=== PATIENT | male | born 1945 | race Caucasian/White ===

== ENCOUNTER → 2016-10-11 | Day surgery (SDC) | payer MEDICARE, OTHER ==
[~2016-10-11] VITALS: Ht 167.6 cm; Wt 113.4 kg
[~2016-10-11] MED LIST: ACETAMINOPH W/CODEINE #3 TAB UD PO PRN; ALLO100T PO; ASPI1TAB PO; CALC1CAP31 PO; CLOT1CRE71 TOP; COLA100C PO; DESFLURANE 240 ML INHALANT As Ordered ONE; DILT240C77 PO; ELIQ5TAB PO; FERR325T3 PO; FURO40TA2 PO; GLYCOPYRROLATE INJ 0.2 MG/ML 2 ML VIAL As Ordered ONE; I CAPS PO; LEVO10VL PO; LIDOCAINE 2% INJ 100 MG/5 ML SDV (FOR ANES.) As Ordered ONE; LIDOCAINE W/EPINEPHRINE 1% 20ML VIAL As Ordered ONE; LIDOCAINE W/EPINEPHRINE 1% 20ML VIAL XX ONE; LOVE0.6I2 SC; LR 1,000 ML IV SCH; MAGN400C PO; MEPERIDINE INJ 25 MG/ML VIAL (J2175) IV PRN; META48.54 PO; METO25TA74 PO; METOCLOPRAMIDE INJ 10MG/2ML VIAL (J2765) IV PRN; MIDAZOLAM INJ 2 MG/2 ML VIAL (J2250) As Ordered ONE; MORPHINE 10 MG/ML 1ML VIAL IV PRN; NEOSTIGMINE 1MG/ML 5 ML SYRINGE (J2710) As Ordered ONE; NEXI40CA PO; NOVO70IN SC; ONDANSETRON 4MG/2ML VIAL (J2405) As Ordered ONE; ONDANSETRON 4MG/2ML VIAL (J2405) IV PRN; PERCOCET 5MG/325MG TAB As Ordered ONE; PHENYLephrine HCL 500 MCG/5 ML (100MCG/ML) SYRINGE (J2370) As Ordered ONE; POTA20PW PO; PRIM250T5 PO; PROPOFOL 200 MG/20 ML VIAL As Ordered ONE; ROCURONIUM BROMIDE 50 MG/5 ML VIAL As Ordered ONE; SIMV20TA2 PO; [UNRECOGNIZED DRUG - CODE] TOP; fentaNYL 100 MCG/2 ML INJECTION (J3010) As Ordered ONE; fentaNYL 100 MCG/2 ML INJECTION (J3010) IV PRN
[2016-10-11] MEDS: PERCOCET 5MG/325MG TAB PO PRN ×2 (12:42→13:02)
--- NOTE | 2016-10-11 12:52 | RO ---
DATE OF PROCEDURE: 10/11/2016 PREOPERATIVE DIAGNOSIS: Skin cancer, nose. POSTOPERATIVE DIAGNOSIS: Skin cancer, nose. PROCEDURE: Excision of skin cancer, nose with nasolabial flap reconstruction stage I. SURGEON: Jeffrey Toure MD STRIPER SPRAY GUN: TARAH Enrique ANESTHESIA: The patient was under general anesthesia. FINDINGS: There was a cancer of the floor of the nose in the vestibule extending back posteriorly onto the septum medially and onto the alar area of the vestibule laterally. DESCRIPTION OF PROCEDURE: What I did first was infiltrate with lidocaine with epinephrine. I mapped out the excision and divided skin and subcutaneous tissues. I excised anteriorly up to the septum and then posteriorly. I went up to the ala and then posteriorly and then down to the floor of the nose. I then dissected the deep tissues and resected the whole area entirely. I took samples of the margins and were sent for frozen section and were all negative. Once this was done, I then controlled bleeding with cautery. The size of the defect measured 3 x 4 cm. Because of this, I had to stage the flap because of the size of the defect. So I made a nasolabial flap based inferiorly. I elevated. Controlled bleeding with cautery. Rotated into place. I sutured it anterior posterior, anterior medially, anterior inferiorly using #4-0 Vicryl and #5-0 nylon. Once this was done, the flap looked very good. I then closed the donor site with #4-0 Vicryl and #5-0 nylon. The ala was tacked down using #5-0 nylon and #4-0 Vicryl. There was no bleeding at the end. I put some Adaptic gauze in the vestibule on that right side. The wound was dressed. Less than 100 mL of estimated blood loss. Patient was extubated and transferred to the recovery room in excellent condition.
[2016-10-11 15:22] VITALS: BP 148/72
== END | disposition home or self-care (01) ==
LOC: M SDC 08:12
PROVIDERS: ATTEND Otolaryngology
DX: C44.301 Unspecified malignant neoplasm of skin of nose (principal); E03.9 Hypothyroidism, unspecified; I12.0 Hypertensive chronic kidney disease with stage 5 chronic kidney disease or end stage renal disease; E10.22 Type 1 diabetes mellitus with diabetic chronic kidney disease; I48.91 Unspecified atrial fibrillation; E78.00 Pure hypercholesterolemia, unspecified; M10.9 Gout, unspecified; J44.9 Chronic obstructive pulmonary disease, unspecified; I50.9 Heart failure, unspecified; J33.9 Nasal polyp, unspecified; R60.0 Localized edema; D64.9 Anemia, unspecified; Z79.01 Long term (current) use of anticoagulants; Z79.4 Long term (current) use of insulin; R06.02 Shortness of breath; Z86.19 Personal history of other infectious and parasitic diseases; G47.9 Sleep disorder, unspecified; Z79.899 Other long term (current) drug therapy; Z79.82 Long term (current) use of aspirin; Z92.3 Personal history of irradiation; M12.9 Arthropathy, unspecified; Z87.81 Personal history of (healed) traumatic fracture; N18.6 End stage renal disease
CPT/HCPCS: 14060; 88305; 88331; J2250; J2370; J2405; J2710; J3010

== ENCOUNTER → 2016-10-31 | Day surgery (SDC) | payer MEDICARE, OTHER ==
[~2016-10-31] VITALS: Ht 167.6 cm; Wt 109.8 kg
[~2016-10-31] MED LIST changes: +BACITRACIN OINT 30GM As Ordered ONE; +BACITRACIN OINT 30GM TOP ONE; -DESFLURANE 240 ML INHALANT As Ordered ONE; +EPINEPHrine 1MG/ML INJ 30ML MD-VIAL As Ordered ONE; +EPINEPHrine 1MG/ML INJ 30ML MD-VIAL XX ONE; -GLYCOPYRROLATE INJ 0.2 MG/ML 2 ML VIAL As Ordered ONE; -MEPERIDINE INJ 25 MG/ML VIAL (J2175) IV PRN; +METOCLOPRAMIDE INJ 10MG/2ML VIAL (J2765) As Ordered ONE; -METOCLOPRAMIDE INJ 10MG/2ML VIAL (J2765) IV PRN; -MORPHINE 10 MG/ML 1ML VIAL IV PRN; +MORPHINE 2 MG/ML 1ML SYRINGE IV PRN; -NEOSTIGMINE 1MG/ML 5 ML SYRINGE (J2710) As Ordered ONE; -PERCOCET 5MG/325MG TAB As Ordered ONE; -PHENYLephrine HCL 500 MCG/5 ML (100MCG/ML) SYRINGE (J2370) As Ordered ONE; +SUGAMMADEX SODIUM 500 MG/5 ML VIAL (BRIDION) As Ordered ONE; +dexameTHASONE 4 MG/ML 1ML VIAL (J1100) As Ordered ONE; -fentaNYL 100 MCG/2 ML INJECTION (J3010) As Ordered ONE; +fentaNYL 250 MCG/5 ML INJECTION (J3010) As Ordered ONE
[2016-10-31 17:05] VITALS: BP 131/68
--- NOTE | 2016-10-31 18:31 | RO ---
DATE OF PROCEDURE: 10/31/2016 PREPROCEDURE DIAGNOSIS: Basal cell carcinoma of nose. POSTPROCEDURE DIAGNOSIS: Basal cell carcinoma of nose. PROCEDURE: Second stage flap reconstruction nose. SURGEON: Dr. Jeffrey Toure VEHICLE PAINTER: ANESTHESIA: DESCRIPTION OF PROCEDURE: Under general anesthesia with the patient intubated, the patient was draped in the usual manner. The first thing I did was to de-epithelialize the inferior aspect of the ala on that right side. Then, I measured the defect, which measured 5 x 10 mm. So, I designed a flap from the nasolabial flap based laterally and then made the incisions, elevated that, controlled bleeding with bipolar cautery and then mobilized that flap into position to re-epithelialize the ala. Then, there was some granulation tissue medially, and I sent that for pathology. I controlled that area of bleeding with bipolar cautery. Then, I made radial incisions laterally and then mobilized the nasolabial flap and advanced it into the alar groove and sutured it with #4-0 Vicryl and then #5-0 nylon. I revised the prior incision a bit inferiorly. After that, it looked very good. The patient tolerated the procedure well. Less than 50 mL estimated blood loss. The patient tolerated the procedure well, was extubated and transferred to the recovery room in excellent condition. EMMA
== END | disposition home or self-care (01) ==
LOC: M SDC 10:41
PROVIDERS: ATTEND Otolaryngology
DX: C44.311 Basal cell carcinoma of skin of nose (principal); I48.91 Unspecified atrial fibrillation; I10 Essential (primary) hypertension; E78.5 Hyperlipidemia, unspecified; E11.9 Type 2 diabetes mellitus without complications; K21.9 Gastro-esophageal reflux disease without esophagitis; Z79.4 Long term (current) use of insulin; Z79.02 Long term (current) use of antithrombotics/antiplatelets; Z79.82 Long term (current) use of aspirin; E03.9 Hypothyroidism, unspecified
CPT/HCPCS: 30430; 88305; J1100; J2250; J2405; J2765; J3010

== ENCOUNTER → 2016-11-28 | Day surgery (SDC) | payer MEDICARE, OTHER ==
[~2016-11-28] VITALS: Ht 167.6 cm; Wt 108.0 kg
[~2016-11-28] MED LIST changes: -ACETAMINOPH W/CODEINE #3 TAB UD PO PRN; +ACETAMINOPHEN 500 MG TAB PO PRN; -BACITRACIN OINT 30GM TOP ONE; -EPINEPHrine 1MG/ML INJ 30ML MD-VIAL XX ONE; +GLYCOPYRROLATE INJ 0.2 MG/ML 2 ML VIAL As Ordered ONE; -LIDOCAINE W/EPINEPHRINE 1% 20ML VIAL XX ONE; +METHYLENE BLUE 0.5% (5MG/ML) 10 ML AMP (PROVAYBLUE)(Q9968 PER 1MG) As Ordered ONE; -METOCLOPRAMIDE INJ 10MG/2ML VIAL (J2765) As Ordered ONE; -MORPHINE 2 MG/ML 1ML SYRINGE IV PRN; +NEOSTIGMINE 1MG/ML 5 ML SYRINGE (J2710) As Ordered ONE; +NORCO, ANEXSIA 5/325MG TABLET (HYDROcodone/ACETAMINOPHEN) PO PRN; -SUGAMMADEX SODIUM 500 MG/5 ML VIAL (BRIDION) As Ordered ONE; -dexameTHASONE 4 MG/ML 1ML VIAL (J1100) As Ordered ONE
[2016-11-28 13:05] VITALS: BP 141/70
--- NOTE | 2016-11-29 10:06 | RO ---
DATE OF PROCEDURE: 11/28/2016 PREPROCEDURE DIAGNOSIS: Squamous cell carcinoma of nose. POSTPROCEDURE DIAGNOSIS: Squamous cell carcinoma of nose. PROCEDURE: Excision squamous cell carcinoma of nose. SURGEON: Jeffrey Toure MD CAMPUS ADMINISTRATIVE ASSISTANT: TARAH Enrique ANESTHESIA: FINDINGS: I excised an area that was 1 x 2 cm. Then, I did frozen sections of border, so the defect was 2 x 1 cm. So, the initial defect was 1.2 x 1 cm. The defect after frozen section was 2.0 x 1.0. The results of the frozen section were that it was positive in the deep margin and the lateral border. DESCRIPTION OF PROCEDURE: Under general anesthesia with the patient intubated, draped in the usual manner, I made an incision around the lesion. I dissected free with the scalpel. Then, I took frozen section biopsies of the margins. Bleeding was controlled with bipolar cautery. Because of the size of the defect and the positive margin, it was elected to not proceed further because the patient will require a nasofrontal forward flap.
== END | disposition home or self-care (01) ==
LOC: M SDC 06:43
PROVIDERS: ATTEND Otolaryngology
DX: C44.311 Basal cell carcinoma of skin of nose (principal); I10 Essential (primary) hypertension; E11.9 Type 2 diabetes mellitus without complications; I48.91 Unspecified atrial fibrillation; E78.5 Hyperlipidemia, unspecified; E03.9 Hypothyroidism, unspecified; K21.9 Gastro-esophageal reflux disease without esophagitis; Z92.3 Personal history of irradiation; Z79.82 Long term (current) use of aspirin; Z79.899 Other long term (current) drug therapy; Z79.02 Long term (current) use of antithrombotics/antiplatelets
CPT/HCPCS: 11642; 88305; 88331; J2250; J2405; J2710; J3010

== ENCOUNTER 2016-12-07 09:00 | Day surgery (SDC) | payer MEDICARE, OTHER ==
[~2016-12-07] VITALS: Ht 167.6 cm; Wt 108.0 kg
[~2016-12-07 09:00] MED LIST changes: -ACETAMINOPHEN 500 MG TAB PO PRN; -BACITRACIN OINT 30GM As Ordered ONE; -EPINEPHrine 1MG/ML INJ 30ML MD-VIAL As Ordered ONE; -GLYCOPYRROLATE INJ 0.2 MG/ML 2 ML VIAL As Ordered ONE; -LIDOCAINE 2% INJ 100 MG/5 ML SDV (FOR ANES.) As Ordered ONE; -LIDOCAINE W/EPINEPHRINE 1% 20ML VIAL As Ordered ONE; -LR 1,000 ML IV SCH; -METHYLENE BLUE 0.5% (5MG/ML) 10 ML AMP (PROVAYBLUE)(Q9968 PER 1MG) As Ordered ONE; -MIDAZOLAM INJ 2 MG/2 ML VIAL (J2250) As Ordered ONE; -NEOSTIGMINE 1MG/ML 5 ML SYRINGE (J2710) As Ordered ONE; -NORCO, ANEXSIA 5/325MG TABLET (HYDROcodone/ACETAMINOPHEN) PO PRN; -ONDANSETRON 4MG/2ML VIAL (J2405) As Ordered ONE; -ONDANSETRON 4MG/2ML VIAL (J2405) IV PRN; -PROPOFOL 200 MG/20 ML VIAL As Ordered ONE; -ROCURONIUM BROMIDE 50 MG/5 ML VIAL As Ordered ONE; -fentaNYL 100 MCG/2 ML INJECTION (J3010) IV PRN; -fentaNYL 250 MCG/5 ML INJECTION (J3010) As Ordered ONE
[2016-12-07] MEDS ORDERED: LR 1,000 ML IV SCH ×2 (09:15→16:15)
[2016-12-07] MEDS ORDERED: BACITRACIN OINT 30GM As Ordered ONE (11:15)
[2016-12-07] MEDS ORDERED: LIDOCAINE W/EPINEPHRINE 1% 20ML VIAL As Ordered ONE (11:16)
[2016-12-07] MEDS ORDERED: MIDAZOLAM INJ 2 MG/2 ML VIAL (J2250) As Ordered ONE (12:05)
[2016-12-07] MEDS ORDERED: ePHEDrine SULFATE 25 MG/5 ML(5MG/ML) SYRINGE As Ordered ONE ×2 (12:05→13:11)
[2016-12-07] MEDS ORDERED: fentaNYL 250 MCG/5 ML INJECTION (J3010) As Ordered ONE (12:05)
[2016-12-07] MEDS ORDERED: PHENYLephrine HCL 500 MCG/5 ML (100MCG/ML) SYRINGE (J2370) As Ordered ONE (12:06)
[2016-12-07] MEDS ORDERED: ROCURONIUM BROMIDE 50 MG/5 ML VIAL As Ordered ONE (12:06)
[2016-12-07] MEDS ORDERED: LIDOCAINE 2% INJ 100 MG/5 ML SDV (FOR ANES.) As Ordered ONE (12:06)
[2016-12-07] MEDS ORDERED: PROPOFOL 200 MG/20 ML VIAL As Ordered ONE (12:06)
[2016-12-07] MEDS ORDERED: GLYCOPYRROLATE INJ 0.2 MG/ML 2 ML VIAL As Ordered ONE (12:06)
[2016-12-07] MEDS ORDERED: NEOSTIGMINE 1MG/ML 5 ML SYRINGE (J2710) As Ordered ONE (12:06)
[2016-12-07] MEDS ORDERED: ONDANSETRON 4MG/2ML VIAL (J2405) As Ordered ONE (12:06)
[2016-12-07] MEDS ORDERED: DESFLURANE 240 ML INHALANT As Ordered ONE (12:22)
[2016-12-07] MEDS ORDERED: fentaNYL 100 MCG/2 ML INJECTION (J3010) As Ordered ONE (15:05)
[2016-12-07] MEDS: fentaNYL 100 MCG/2 ML INJECTION (J3010) IV PRN ×5 (15:06→17:09)
[2016-12-07] MEDS ORDERED: PERCOCET 5MG/325MG TAB PO PRN (16:15)
[2016-12-07] MEDS ORDERED: METOCLOPRAMIDE INJ 10MG/2ML VIAL (J2765) IV PRN (16:15)
[2016-12-07] MEDS ORDERED: ONDANSETRON 4MG/2ML VIAL (J2405) IV PRN (16:15)
[2016-12-07] MEDS ORDERED: ACETAMINOPH W/CODEINE #3 TAB UD PO PRN (16:15)
[2016-12-07 17:00] VITALS: BP 129/71
[2016-12-07] MEDS: LR 1,000 ML IV SCH (17:23)
[2016-12-07] MEDS: MORPHINE 10 MG/ML 1ML VIAL IV PRN ×2 (17:25→21:41)
[2016-12-07 17:30] VITALS: BP 137/69
[2016-12-07] MEDS ORDERED: HumuLIN (NovoLIN)70/30 INSULIN INJ PER UNIT SC SCH (17:30)
[2016-12-07 18:00] VITALS: BP 136/77
--- NOTE | 2016-12-07 18:20 | RO ---
DATE OF PROCEDURE: 12/07/2016 PREOPERATIVE DIAGNOSES: Skin cancer nose. POSTOPERATIVE DIAGNOSES: Skin cancer nose. OPERATIVE PROCEDURE: Excision of skin cancer nose. The defect measured 2 x 2 cm with frozen section. Reconstruction using forehead flap and auricular cartilage graft. SURGEON: Jeffrey Toure MD PORTFOLIO ADMINISTRATOR: Rogelio Sequeira ANESTHESIA: General anesthesia. DESCRIPTION OF PROCEDURE: Under general anesthesia, with the patient intubated, the patient was draped in the usual manner. I infiltrated with lidocaine and epinephrine. I excised the base of the defect from before where it was positive and sent that for frozen section. Once this was done, then there was complete lack of the tissue in the lower lateral cartilage and mucosa as well as the skin anteriorly, so through this loss there was just a 2 mm alar rim, which was intact. Because of that, I resected this and elected to reconstruct the whole area. I used a frontal forehead flap and sandwiched a cartilage graft from the right ear between that. This was accomplished first by making an incision in the oracle in the right side and I harvested cartilage. I closed that incision with #5-0 nylon. After this was done then I designed the forehead frontal flap to cover the area. The frontal forehead flap was designed using a template from the defect. Once this was done, then I made the incisions around the flap with a 1.5 mm base. The defect that was reconstructed was 4 x 6 cm. Once the flap was raised I controlled the bleeding with cautery. I wrapped the flap in wet gauze. Once that was done, then I undermined the harvest site on both sides. Once I undermined it completely, then I put in a [place] drain and closed that wound with #4-0 Prolene as well as some #3-0 Vicryl. It closed well. Then, I thinned the forehead flap, distal portion, to 1.5 mm to 2 mm in depth. Once that was done, then I rotated the flap into place. I made incisions in the brow area so that it had good length. From the tip of the nose to the forehead area it was 8 cm and this was similarity from the flap to the tip of the flap. I then started suturing the flap in place by using interrupted #4-0 Vicryl inside the nose for the defect of the alar rim on the right side and then once that was in place, then I started suturing the skin on the left side. That left the skin on the right side. I cut some of the harvested cartilage, put it in, sutured it to the upper lateral cartilage and lateral crest of the lower lateral cartilage. Then, I closed the skin on that right side. The patient tolerated the procedure well. Less than 50 mL of estimated blood loss. I then cauterized the edges of the forehead flap pedicle skin which were bleeding with bipolar cautery. Once that was done, everything looked very good. I had thought of harvesting a mucosal flap to the inside, but abandoned that and did cauterize that area with cautery. The patient tolerated the procedure well. The patient was extubated and transferred to the recovery room in excellent condition after the wound was dressed.
[2016-12-07 19:00] VITALS: BP 123/72
[2016-12-07 20:00] VITALS: BP 129/79
[2016-12-07] MEDS: ALLOPURINOL 100 MG TAB PO SCH (20:02)
[2016-12-07] MEDS: FUROSEMIDE 40 MG TAB PO SCH (20:03)
[2016-12-07] MEDS: MAGNESIUM OXIDE 400 MG TAB (MAG-OX) PO SCH (20:03)
[2016-12-07] MEDS: FERROUS SULFATE 325MG TAB PO SCH (20:12)
[2016-12-07] MEDS: METOPROLOL SUCC *XL* 25MG TAB (TopROL *XL*) PO SCH (20:13)
[2016-12-07 21:00] VITALS: BP 116/63
[2016-12-07] MEDS ORDERED: SIMVASTATIN 40 MG TAB PO SCH (21:00)
[2016-12-07] MEDS ORDERED: PRIMIDONE 50 MG TAB PO SCH (21:00)
[2016-12-07] MEDS ORDERED: CALCITRIOL 0.25 MCG CAP (S0169) PO SCH (21:00)
[2016-12-08 02:00] VITALS: BP 132/68
[2016-12-08] MEDS: LR 1,000 ML IV SCH (02:15)
[2016-12-08] MEDS: MORPHINE 10 MG/ML 1ML VIAL IV PRN ×2 (05:59→11:50)
[2016-12-08 06:00] VITALS: BP 117/66
[2016-12-08] MEDS ORDERED: LEVOTHYROXINE 0.15 MG TAB (150 MCG) PO SCH (06:00)
[2016-12-08] MEDS ORDERED: HumuLIN (NovoLIN)70/30 INSULIN INJ PER UNIT SC SCH ×2 (07:30→17:30)
[2016-12-08] MEDS: FERROUS SULFATE 325MG TAB PO SCH (08:07)
[2016-12-08] MEDS: FUROSEMIDE 40 MG TAB PO SCH (08:08)
[2016-12-08] MEDS: MAGNESIUM OXIDE 400 MG TAB (MAG-OX) PO SCH (08:08)
[2016-12-08] MEDS: ALLOPURINOL 100 MG TAB PO SCH (08:08)
[2016-12-08 08:09] VITALS: BP 117/66
[2016-12-08] MEDS: METOPROLOL SUCC *XL* 25MG TAB (TopROL *XL*) PO SCH (08:09)
[2016-12-08] MEDS ORDERED: DOCUSATE SODIUM 100 MG CAP PO SCH (09:00)
[2016-12-08] MEDS ORDERED: OMEGA-3 1050MG CAPSULE PO SCH (09:00)
[2016-12-08] MEDS ORDERED: POTASSIUM CHLORIDE 10 MEQ SR TABLET PO SCH (09:00)
[2016-12-08] MEDS ORDERED: METAMUCIL (PSYLLIUM) PACKET PO SCH (09:00)
[2016-12-08] MEDS ORDERED: PANTOPRAZOLE 40MG TAB (PROTONIX) PO SCH (09:00)
[2016-12-08] MEDS ORDERED: VITAMIN D 1,000 INTERNATIONAL UNITS TABLET PO SCH (09:00)
[2016-12-08 10:00] VITALS: BP 144/62
== END 2016-12-08 14:40 | disposition home or self-care (01) ==
LOC: M SDC 09:00 → M MSPAV 17:00 → M SDC 12-08 14:40
PROVIDERS: ATTEND Otolaryngology
DX: C44.311 Basal cell carcinoma of skin of nose (principal); I48.91 Unspecified atrial fibrillation; I10 Essential (primary) hypertension; E78.5 Hyperlipidemia, unspecified; E11.9 Type 2 diabetes mellitus without complications; E03.9 Hypothyroidism, unspecified; Z79.4 Long term (current) use of insulin; Z79.82 Long term (current) use of aspirin; Z79.02 Long term (current) use of antithrombotics/antiplatelets; Z79.899 Other long term (current) drug therapy; Z92.3 Personal history of irradiation
CPT/HCPCS: 11642; 15260; 15731; 88305; 88331; 96374; 96376; J2250; J2370; J2405; J2710; J3010

== ENCOUNTER → 2016-12-12 | Outpatient (REF) | payer MEDICARE, OTHER | LOC: M LAB REF 16:58 | PROVIDERS: ATTEND Physician Assistant Medical | DX: C44.321 Squamous cell carcinoma of skin of nose (principal) ==

== ENCOUNTER → 2017-01-03 | Day surgery (SDC) | payer MEDICARE, OTHER ==
[~2017-01-03] VITALS: Ht 167.6 cm; Wt 107.5 kg
[~2017-01-03] MED LIST changes: +ACETAMINOPH W/CODEINE #3 TAB UD PO PRN; +ALBUTEROL 6.7GM INHALER **FOR ANES. CART/OMNICELL ONLY As Ordered ONE; +AMOX500C PO; +BACITRACIN OINT 30GM As Ordered ONE; -COLA100C PO; +COLA100C3 PO; +EPINEPHrine 1MG/ML INJ 30ML MD-VIAL As Ordered ONE; +GLYCOPYRROLATE INJ 0.2 MG/ML 2 ML VIAL As Ordered ONE; +KLOR20PO12 PO; +LEVO100T5 PO; +LIDOCAINE 2% INJ 100 MG/5 ML SDV (FOR ANES.) As Ordered ONE; +LIDOCAINE W/EPINEPHRINE 1% 20ML VIAL As Ordered ONE; +LR 1,000 ML IV SCH; +MIDAZOLAM INJ 2 MG/2 ML VIAL (J2250) As Ordered ONE; +NEOSTIGMINE 1MG/ML 5 ML SYRINGE (J2710) As Ordered ONE; +NS 1,000 ML IV SCH; +ONDANSETRON 4MG/2ML VIAL (J2405) As Ordered ONE; +ONDANSETRON 4MG/2ML VIAL (J2405) IV PRN; +PERCOCET 5MG/325MG TAB PO PRN; +PHENYLEPHRINE INJ 10MG/ML VIAL (J2370) As Ordered ONE; -POTA20PW PO; +PROPOFOL 200 MG/20 ML VIAL As Ordered ONE; +REMIFENTANIL 1MG 3ML VIAL As Ordered ONE; +ROCURONIUM BROMIDE 50 MG/5 ML VIAL As Ordered ONE; +SUCCINYLCHOLINE 100 MG/5 ML SYRINGE (J0330) As Ordered ONE; +dexameTHASONE 4 MG/ML 1ML VIAL (J1100) As Ordered ONE; +fentaNYL 100 MCG/2 ML INJECTION (J3010) IV PRN; +fentaNYL 250 MCG/5 ML INJECTION (J3010) As Ordered ONE
[2017-01-03 16:32] VITALS: BP 141/71
--- NOTE | 2017-01-03 21:27 | RO ---
DATE OF PROCEDURE: 01/03/2017 PREOPERATIVE DIAGNOSES: Skin cancer nose. POSTOPERATIVE DIAGNOSES: Skin cancer nose. OPERATIVE PROCEDURE: 6th stage reconstruction defect from skin cancer nose. SURGEON: Jeffrey Toure MD SHELL REPRINT OPERATOR: Jarocho Lee MD ANESTHESIA: General anesthesia. DESCRIPTION OF PROCEDURE: Under general anesthesia, with the patient intubated, the patient was draped in the usual manner. Flap was examined. It looked very good. I divided the superior portion of the pedicle and then revised that portion and inset it and sutured it with interrupted #5-0 nylon. Then, I cut the inferior part of the pedicle off and then trimmed the flap in its superior border so it would fit and abut the adjacent skin. I had to excise portions and then trim them. Bleeding was controlled with cautery. The area looked very good. I sutured the area and closed with interrupted #5-0 nylon. The patient tolerated the procedure well. Less than 10 mL estimated blood loss. The patient was extubated and transferred to the recovery room in excellent condition. EMMA
== END | disposition home or self-care (01) ==
LOC: M SDC 10:06
PROVIDERS: ATTEND Otolaryngology
DX: C44.321 Squamous cell carcinoma of skin of nose (principal); E03.9 Hypothyroidism, unspecified; I12.9 Hypertensive chronic kidney disease with stage 1 through stage 4 chronic kidney disease, or unspecified chronic kidney disease; E10.40 Type 1 diabetes mellitus with diabetic neuropathy, unspecified; E10.22 Type 1 diabetes mellitus with diabetic chronic kidney disease; I48.91 Unspecified atrial fibrillation; E78.00 Pure hypercholesterolemia, unspecified; R60.0 Localized edema; K21.9 Gastro-esophageal reflux disease without esophagitis; D64.9 Anemia, unspecified; R23.3 Spontaneous ecchymoses; B15.9 Hepatitis A without hepatic coma; R06.02 Shortness of breath; N18.4 Chronic kidney disease, stage 4 (severe); M12.9 Arthropathy, unspecified; M54.9 Dorsalgia, unspecified; M87.00 Idiopathic aseptic necrosis of unspecified bone; G25.0 Essential tremor; Z79.899 Other long term (current) drug therapy; Z79.82 Long term (current) use of aspirin; Z79.4 Long term (current) use of insulin; Z87.81 Personal history of (healed) traumatic fracture; Z92.3 Personal history of irradiation
CPT/HCPCS: 15630; J0330; J1100; J2250; J2370; J2405; J2710; J3010

== ENCOUNTER → 2017-02-09 | Outpatient (REF) | payer MEDICARE, OTHER ==
[~2017-02-09] MED LIST changes: -ACETAMINOPH W/CODEINE #3 TAB UD PO PRN; -ALBUTEROL 6.7GM INHALER **FOR ANES. CART/OMNICELL ONLY As Ordered ONE; -BACITRACIN OINT 30GM As Ordered ONE; -EPINEPHrine 1MG/ML INJ 30ML MD-VIAL As Ordered ONE; -GLYCOPYRROLATE INJ 0.2 MG/ML 2 ML VIAL As Ordered ONE; -LIDOCAINE 2% INJ 100 MG/5 ML SDV (FOR ANES.) As Ordered ONE; -LIDOCAINE W/EPINEPHRINE 1% 20ML VIAL As Ordered ONE; -LR 1,000 ML IV SCH; -MIDAZOLAM INJ 2 MG/2 ML VIAL (J2250) As Ordered ONE; -NEOSTIGMINE 1MG/ML 5 ML SYRINGE (J2710) As Ordered ONE; -NS 1,000 ML IV SCH; -ONDANSETRON 4MG/2ML VIAL (J2405) As Ordered ONE; -ONDANSETRON 4MG/2ML VIAL (J2405) IV PRN; -PERCOCET 5MG/325MG TAB PO PRN; -PHENYLEPHRINE INJ 10MG/ML VIAL (J2370) As Ordered ONE; -PROPOFOL 200 MG/20 ML VIAL As Ordered ONE; -REMIFENTANIL 1MG 3ML VIAL As Ordered ONE; -ROCURONIUM BROMIDE 50 MG/5 ML VIAL As Ordered ONE; -SUCCINYLCHOLINE 100 MG/5 ML SYRINGE (J0330) As Ordered ONE; -dexameTHASONE 4 MG/ML 1ML VIAL (J1100) As Ordered ONE; -fentaNYL 100 MCG/2 ML INJECTION (J3010) IV PRN; -fentaNYL 250 MCG/5 ML INJECTION (J3010) As Ordered ONE
== END ==
LOC: M LAB REF 12:34
PROVIDERS: ATTEND Surgery
DX: D23.5 Other benign neoplasm of skin of trunk (principal)

== ENCOUNTER → 2017-08-07 | Outpatient (REF) | payer MEDICARE, OTHER ==
[~2017-08-07] MED LIST changes: -COLA100C3 PO; +COLA100C5 PO; +METO1TAB32 PO; -METO25TA74 PO; +NOVO1INJ4 SC; -NOVO70IN SC; -PRIM250T5 PO; +PRIM250T8 PO
[2017-08-07 14:18] LABS: WBC, URINE 0-1 /hpf (0-3)
[2017-08-07 14:19] LABS: BACTERIA, URINE NONE SEEN; HYALINE CAST, URINE NONE SEEN /lpf (0-1); MICROSCOPIC EXAM PERFORMED; RBC, URINE 0-1 /hpf (0-3); SQUAMOUS EPITHELIAL CELL URINE NONE SEEN /hpf (SMALL AMT)
== END ==
LOC: M LAB REF 12:56
PROVIDERS: ATTEND Internal Medicine Nephrology
DX: N18.3 Chronic kidney disease, stage 3 (moderate) (principal); R31.29 Other microscopic hematuria

== ENCOUNTER → 2017-12-05 | Outpatient (REF) | payer MEDICARE, OTHER ==
[2017-12-05 18:56] LABS: FERRITIN 113 NG/ML (26-388); IRON (FE) 96 UG/DL (65-175); PERCENT SATURATION 36.1 % (19.7-50.0); TOTAL IRON BINDING CAPACITY 266 UG/DL (250-450)
== END ==
LOC: M LAB REF 17:17
DX: N18.3 Chronic kidney disease, stage 3 (moderate) (principal)
CPT/HCPCS: 83550

== ENCOUNTER 2018-08-30 09:59 | Day surgery (SDC) | payer MEDICARE, OTHER ==
[2018-08-30 10:39] LABS: HEMATOCRIT 48.1 % (42.0-52.0); HEMOGLOBIN 16.2 g/dl (13.5-17.5); MEAN CORPUSCULAR HGB CONC 33.7 g/dl (32.0-36.5); PLATELET COUNT, AUTOMATED 228 10^3/uL (150-450); RED BLOOD COUNT 5.23 10^6/uL (4.30-6.10); RED CELL DISTRIBUTION WIDTH 13.5 % (11.5-14.5); WHITE BLOOD COUNT 8.9 10^3/uL (4.0-10.0)
[2018-08-30 10:51] LABS: PROTHROMBIN TIME 13.3 SECONDS (12.1-14.4)
[2018-08-30 10:52] LABS: PARTIAL THROMBOPLASTIN TIME 28.1 SECONDS (25.4-37.6)
[2018-08-30 11:09] LABS: ANION GAP 5 MEQ/L (8-16); BLOOD UREA NITROGEN 20 MG/DL (7-18); CALCIUM LEVEL 8.9 MG/DL (8.8-10.2); CARBON DIOXIDE LEVEL 32 MEQ/L (21-32); CHLORIDE LEVEL 107 MEQ/L (98-107); CREATININE FOR GFR 1.47 MG/DL (0.70-1.30); GLOMERULAR FILTRATION RATE 50.3 (>42); GLUCOSE, FASTING 133 MG/DL (70-100); POTASSIUM SERUM 4.3 MEQ/L (3.5-5.1); SODIUM LEVEL 144 MEQ/L (136-145)
[2018-08-30 11:38] LABS: BEDSIDE GLUCOSE 153 MG/DL (83-110)
[2018-08-30 13:27] LABS: BEDSIDE GLUCOSE 114 MG/DL (83-110)
[2018-08-30] MEDS ORDERED: LIDOCAINE 2% INJ 100 MG/5 ML SDV (FOR ANES.) As Ordered (14:07)
[2018-08-30] MEDS ORDERED: PROPOFOL 200 MG/20 ML VIAL As Ordered (14:07)
[2018-08-30] MEDS ORDERED: ROCURONIUM BROMIDE 50 MG/5 ML VIAL As Ordered (14:08)
[2018-08-30] MEDS ORDERED: dexameTHASONE 4 MG/ML 1ML VIAL (J1100) As Ordered (14:08)
[2018-08-30] MEDS ORDERED: ONDANSETRON 4MG/2ML VIAL (J2405) As Ordered (14:08)
[2018-08-30] MEDS ORDERED: MIDAZOLAM INJ 2 MG/2 ML VIAL (J2250) As Ordered (14:12)
[2018-08-30] MEDS ORDERED: fentaNYL 100 MCG/2 ML INJECTION (J3010) As Ordered (14:12)
[2018-08-30] MEDS ORDERED: NEOSTIGMINE 10 MG/10 ML VIAL (J2710) As Ordered (14:19)
[2018-08-30] MEDS ORDERED: GLYCOPYRROLATE INJ 0.2 MG/ML 2 ML VIAL As Ordered (15:21)
[2018-08-30] MEDS: EPINEPHrine 1MG/ML INJ 30ML MD-VIAL As Ordered (16:02)
[2018-08-30] MEDS ORDERED: ePHEDrine SULFATE 25 MG/5 ML(5MG/ML) SYRINGE As Ordered (16:03)
[2018-08-30] MEDS: METHYLENE BLUE 0.5% (5MG/ML) 10 ML AMP (PROVAYBLUE)(Q9968 PER 1MG) As Ordered (16:03)
[2018-08-30] MEDS ORDERED: PHENYLephrine HCL 500 MCG/5 ML (100MCG/ML) SYRINGE (J2370) As Ordered (16:03)
[2018-08-30] MEDS: BACITRACIN OINT 30GM As Ordered (16:40)
[2018-08-30] MEDS: LIDOCAINE W/EPINEPHRINE 1% 20ML VIAL As Ordered (16:40)
[2018-08-30] MEDS ORDERED: ACETAMINOPH W/CODEINE #3 TAB UD PO (18:00)
[2018-08-30] MEDS ORDERED: MORPHINE 10 MG/ML 1ML VIAL (J2270) IV (18:00)
[2018-08-30] MEDS ORDERED: fentaNYL 100 MCG/2 ML INJECTION (J3010) IV (18:00)
[2018-08-30] MEDS ORDERED: METOCLOPRAMIDE INJ 10MG/2ML VIAL (J2765) IV (18:00)
[2018-08-30] MEDS ORDERED: ONDANSETRON 4MG/2ML VIAL (J2405) IV (18:00)
[2018-08-30] MEDS ORDERED: LR 1,000 ML IV ×2 (18:00)
[2018-08-30] MEDS ORDERED: PERCOCET 5MG/325MG TAB PO (18:00)
== END 2018-08-30 19:25 | disposition home or self-care (01) ==
LOC: M SDC 09:59
DX: M95.0 Acquired deformity of nose (principal); J34.2 Deviated nasal septum; I10 Essential (primary) hypertension; E78.5 Hyperlipidemia, unspecified; I48.91 Unspecified atrial fibrillation; E03.9 Hypothyroidism, unspecified; M10.9 Gout, unspecified; Z79.4 Long term (current) use of insulin; E11.9 Type 2 diabetes mellitus without complications; Z79.01 Long term (current) use of anticoagulants; Z79.899 Other long term (current) drug therapy; K21.9 Gastro-esophageal reflux disease without esophagitis; D64.9 Anemia, unspecified
CPT/HCPCS: 30520

== ENCOUNTER → 2019-07-11 | Outpatient (REF) | payer MEDICARE, OTHER ==
[~2019-07-11] MED LIST changes: +ARTIDRO2 OU; -ASPI1TAB PO; +ASPI81TA26 PO; +DILT1CAP5 PO; -DILT240C77 PO; +LEVO137T2 PO; +POTA1TAB14 PO; +PRES1CHW PO; +PRESCAP6 PO; +PRIM50TA6 PO; +PROT1TAB2 PO; +VITA100067 PO
== END ==
LOC: M LAB REF 18:07
PROVIDERS: ATTEND Otolaryngology
DX: L01.02 Bockhart's impetigo (principal)

== ENCOUNTER → 2020-01-16 | Outpatient (REF) | payer MEDICARE, OTHER ==
[~2020-01-16] MED LIST changes: -ARTIDRO2 OU; +POLYOPD OU; -SIMV20TA2 PO; +SIMV20TA22 PO
[2020-01-16 18:10] LABS: PERCENT SATURATION 24.4 % (19.7-50.0)
== END ==
LOC: M LAB REF 16:40
PROVIDERS: ATTEND Nurse Practitioner Family
DX: D50.9 Iron deficiency anemia, unspecified (principal)

== ENCOUNTER → 2020-12-31 | Outpatient (REF) | payer MEDICARE, OTHER | LOC: M LAB REF 13:50 | PROVIDERS: ATTEND Dermatology | DX: L82.1 Other seborrheic keratosis (principal) ==

== ENCOUNTER → 2021-07-14 | Outpatient (REF) | payer MEDICARE, OTHER | LOC: M LAB REF 13:08 | PROVIDERS: ATTEND Internal Medicine Nephrology | DX: E83.42 Hypomagnesemia (principal) ==

== ENCOUNTER → 2022-01-13 | Outpatient (REF) | payer MEDICARE, OTHER ==
[2022-01-13 18:54] LABS: PERCENT SATURATION 30.9 % (19.7-50.0)
== END ==
LOC: M LAB REF 16:41
PROVIDERS: ATTEND Internal Medicine Nephrology
DX: N18.31 Chronic kidney disease, stage 3a (principal); E61.1 Iron deficiency

== ENCOUNTER → 2022-02-25 | Outpatient (REF) | payer MEDICARE, OTHER | LOC: M SFHCDERM 15:03 | PROVIDERS: ATTEND Dermatology | DX: L90.5 Scar conditions and fibrosis of skin (principal); L82.1 Other seborrheic keratosis ==

== ENCOUNTER → 2022-03-01 | Outpatient (REF) | payer MEDICARE, OTHER | LOC: M SFHCDERM 13:59 | PROVIDERS: ATTEND Dermatology | DX: Z51.89 Encounter for other specified aftercare (principal) ==

== ENCOUNTER → 2022-03-08 | Outpatient (REF) | payer MEDICARE, OTHER | LOC: M SFHCDERM 17:06 | PROVIDERS: ATTEND Dermatology | DX: T81.49XA Infection following a procedure, other surgical site, initial encounter (principal) ==

== ENCOUNTER → 2022-03-11 | Outpatient (REF) | payer MEDICARE, OTHER | LOC: M SFHCDERM 14:03 | PROVIDERS: ATTEND Dermatology | DX: T81.49XA Infection following a procedure, other surgical site, initial encounter (principal) ==

== ENCOUNTER 2023-02-02 10:58 | Day surgery (SDC) | payer MEDICARE, OTHER ==
[~2023-02-02] VITALS: Ht 165.1 cm; Wt 110.7 kg
[~2023-02-02 10:58] MED LIST changes: +ARTIDRO4 OU; +BREO1INH3 INH; +D31000CA4 PO; -DILT1CAP5 PO; +DILT240C41 PO; +DILT30TA PO; +OMEG10002 PO; -POLYOPD OU; +POTA-298 PO; -POTA1TAB14 PO; +PRES10CA2 PO
[2023-02-02] MEDS ORDERED: D5W 1,000 ML IV SCH (14:25)
[2023-02-02] MEDS ORDERED: fentaNYL 250 MCG/5 ML INJECTION As Ordered ONE (15:04)
[2023-02-02] MEDS ORDERED: LIDOCAINE W/EPINEPHRINE 1% 20ML VIAL As Ordered ONE (15:05)
[2023-02-02] MEDS ORDERED: ROCURONIUM BROMIDE 50MG/5ML VIAL As Ordered ONE (15:05)
[2023-02-02] MEDS ORDERED: propofoL 200 MG/20 ML VIAL As Ordered ONE (15:05)
[2023-02-02] MEDS ORDERED: MIDAZOLAM INJ 2MG/2ML VIAL As Ordered ONE (15:05)
[2023-02-02] MEDS ORDERED: LIDOCAINE 2% 100MG/5ML SDV (FOR ANES.) As Ordered ONE (15:05)
[2023-02-02] MEDS ORDERED: ONDANSETRON 4MG 2ML VIAL As Ordered ONE (15:05)
[2023-02-02] MEDS ORDERED: ACETAMINOPHEN 1000MG 100ML IV BAG As Ordered ONE (15:12)
[2023-02-02] MEDS ORDERED: LR 1,000 ML IV SCH ×2 (15:20→16:40)
[2023-02-02] MEDS ORDERED: LACRILUBE (AKWA TEARS) OPHTH OINT 3.5GM As Ordered ONE (15:24)
[2023-02-02] MEDS ORDERED: PHENYLephrine 500MCG 5ML (100MCG/ML) SYRINGE As Ordered ONE ×2 (15:38→16:08)
[2023-02-02] MEDS ORDERED: SUGAMMADEX SODIUM 500 MG/5 ML VIAL (BRIDION) As Ordered ONE (15:54)
[2023-02-02] MEDS ORDERED: POLYSPORIN TOPICAL OINTMENT 15GM As Ordered ONE (16:13)
[2023-02-02] MEDS ORDERED: oxyCODONE 5MG TAB PO PRN (16:40)
[2023-02-02] MEDS ORDERED: fentaNYL 100 MCG/2 ML INJECTION IV PRN (16:40)
[2023-02-02] MEDS ORDERED: ONDANSETRON 4MG 2ML VIAL IV PRN (16:40)
[2023-02-02] MEDS ORDERED: HYDROMORPHONE HCL 0.5 MG/ 0.5 ML SYRINGE IV PRN (16:40)
[2023-02-02 17:30] VITALS: BP 142/73
== END 2023-02-02 17:55 | disposition home or self-care (01) ==
LOC: M SDC 10:58
PROVIDERS: ATTEND Otolaryngology
DX: L82.1 Other seborrheic keratosis (principal); B07.8 Other viral warts; D14.0 Benign neoplasm of middle ear, nasal cavity and accessory sinuses; E11.9 Type 2 diabetes mellitus without complications; I10 Essential (primary) hypertension; E78.00 Pure hypercholesterolemia, unspecified; E07.9 Disorder of thyroid, unspecified; J44.9 Chronic obstructive pulmonary disease, unspecified; I50.9 Heart failure, unspecified; M10.9 Gout, unspecified; Z79.01 Long term (current) use of anticoagulants; Z79.4 Long term (current) use of insulin; Z79.899 Other long term (current) drug therapy; Z92.3 Personal history of irradiation; Z85.828 Personal history of other malignant neoplasm of skin
CPT/HCPCS: 11440; 11441; 88305; J0131; J1100; J2250; J2370; J2405; J3010

== ENCOUNTER 2024-04-10 11:03 | Day surgery (SDC) | payer MEDICARE, OTHER ==
[~2024-04-10] VITALS: Ht 165.1 cm; Wt 105.1 kg
[~2024-04-10 11:03] MED LIST changes: +ALBU8.5H INH; +DOCU100C16 PO; +FLUT1BLS17 INH; +LIDOCAINE 3.5 % 1ML OPHTH TOPICAL GEL As Ordered ONE; +MAGN400T33 PO; +PANT40TA29 PO; +PHENYLEPHRINE 10% OPHTH SOL 5ML OS PRN; +POTA-151 PO; +SIMV40TA20 PO; +SYNT137T7 PO; +VITA100093 PO
[2024-04-10] MEDS ORDERED: MIDAZOLAM INJ 2MG/2ML VIAL As Ordered ONE (11:30)
[2024-04-10] MEDS ORDERED: fentaNYL 100 MCG/2 ML INJECTION As Ordered ONE (11:31)
[2024-04-10] MEDS: CEFUROXIME 1MG/0.1ML INTRACAMERAL INJ As Ordered ONE (12:46)
[2024-04-10] MEDS: LIDOCAINE 1% SDV 5ML VIAL As Ordered ONE (12:46)
[2024-04-10] MEDS: BSS IRRIG/VANCO(10MG)/TOBRA(5MG)/EPINEPH(1:1000-0.5CC)500ML BAG-ORONLY As Ordered ONE (12:47)
[2024-04-10 12:57] VITALS: BP 147/70; TEMP 98.1; O2SAT 97
[2024-04-10] MEDS: OFLOXACIN 0.3 % (OCUFLOX) OPTH SOL 5ML OS ONE (13:11)
[2024-04-10] MEDS: LIDOCAINE 3.5 % 1ML OPHTH TOPICAL GEL OU ONE (13:11)
[2024-04-10] MEDS: PHENYLEPHRINE 2.5% OPHTH SOL 2ML OS SCH (13:12)
[2024-04-10] MEDS: ATROPINE SULFATE 1% OPHTH SOLN 2ML BTL OS SCH (13:12)
[2024-04-10] MEDS: TROPICAMIDE 1% OPHTH SOLN 15ML OS SCH (13:12)
== END 2024-04-10 13:15 | disposition home or self-care (01) ==
LOC: M SDC 11:03
PROVIDERS: ATTEND Ophthalmology
DX: E11.36 Type 2 diabetes mellitus with diabetic cataract (principal); H25.12 Age-related nuclear cataract, left eye; I12.9 Hypertensive chronic kidney disease with stage 1 through stage 4 chronic kidney disease, or unspecified chronic kidney disease; N18.30 Chronic kidney disease, stage 3 unspecified; I48.91 Unspecified atrial fibrillation; E11.40 Type 2 diabetes mellitus with diabetic neuropathy, unspecified; E78.00 Pure hypercholesterolemia, unspecified; J44.9 Chronic obstructive pulmonary disease, unspecified; E03.9 Hypothyroidism, unspecified; Z79.01 Long term (current) use of anticoagulants; Z79.899 Other long term (current) drug therapy; Z79.890 Hormone replacement therapy; Z79.4 Long term (current) use of insulin; Z79.82 Long term (current) use of aspirin; K21.9 Gastro-esophageal reflux disease without esophagitis; Z85.828 Personal history of other malignant neoplasm of skin; Z92.3 Personal history of irradiation
CPT/HCPCS: 66984; J0697; J2250; J3010; V2632